=== PATIENT | female | born 1995 | race Caucasian/White ===

== ENCOUNTER 2017-05-04 13:28 | Emergency (ER) | payer SELFPAY ==
[~2017-05-04] VITALS: Ht 177.8 cm; Wt 140.9 kg
[2017-05-04 13:34] VITALS: BP 147/83; TEMP 98.1
[2017-05-04] MEDS ORDERED: VESICARE 5MG5 MG PO (13:37)
[2017-05-04] MEDS ORDERED: PROZAC 10MG10 MG PO (13:37)
[2017-05-04 16:40] VITALS: PULSE 98
== END 2017-05-04 16:40 | disposition home or self-care (01) ==
LOC: COL.ER 13:28
DX: S89.82XA Other specified injuries of left lower leg, initial encounter (principal); W17.89XA Other fall from one level to another, initial encounter
CPT/HCPCS: L1830